=== PATIENT | female | born 1990 | race American Indian/Alaskan Native ===

== ENCOUNTER 2017-04-08 00:58 | Emergency (ER) | payer BC, OTHER ==
[2017-04-08 01:01] VITALS: BMI 35.6
[2017-04-08 01:06] VITALS: RESP 18; TEMP 98.8
[2017-04-08] MEDS ORDERED: cefTRIAXone (Rocephin) 250 mg Inj IM STA (01:54)
[2017-04-08] MEDS ORDERED: Iohexol 350 MG/100 ML VIAL ONE (02:13)
[2017-04-08 02:20] LABS: URINE BILIRUBIN NEGATIVE (NEGATIVE); URINE BLOOD NEGATIVE (NEGATIVE); URINE GLUCOSE (UA) NEGATIVE (NEGATIVE); URINE KETONE NEGATIVE (NEGATIVE); URINE LEUKOCYTE ESTERASE NEGATIVE Leu/uL (NEGATIVE); URINE PROTEIN NEGATIVE mg/dL (<30 mg/dL)
--- NOTE | 2017-04-08 02:20 | ED PDOC ---
Arrival/HPI - General Historian: Patient - History of Present Illness Time/Duration: < week Symptom Onset: Gradual Symptom Course: Unchanged Quality: Unable to Describe Severity Level: 3 Activities at Onset: Rest Context: Sitting - General Chief Complaint: Abdominal Pain Time Seen by Provider: 04/08/17 01:04 - History of Present Illness Narrative History of Present Illness (Text): 04/08/17 02:24 This is a 26 year old female with no past medical history who comes into [facility] complaining of vaginal pain for approximately one week. She reports feeling the pain when wiping after urination. She also reports right lower quadrant pain that started about two days ago. She describes the pain as cramping with no radiation. She does report drinking water improving her pain level. She denies any fevers, chills, nausea, vomiting , vaginal discharge, new vaginal lesions, vaginal odor, or any other complaints. (Richard Young) Past Medical History - Provider Review Nursing Documentation Reviewed: Yes - Infectious Disease Hx of Infectious Diseases: None - Past Medical History Past Medical History: No Previous - Psychiatric Hx Depression: No Hx Emotional Abuse: No Hx Physical Abuse: No Hx Substance Use: No - Past Surgical History Past Surgical History: No Previous - Surgical History Hx Section: Yes (x1) - Anesthesia Hx Anesthesia: Yes Hx Anesthesia Reactions: No Hx Malignant Hyperthermia: No - Suicidal Assessment Feels Threatened In Home Enviroment: No Family/Social History - Physician Review Nursing Documentation Reviewed: Yes Family/Social History: No Known Family HX Smoking Status: Never Smoked Hx Alcohol Use: Yes Frequency of alcohol use: Socially Hx Substance Use: No Hx Substance Use Treatment: No Allergies/Home Meds Allergies/Adverse Reactions: Allergies No Known Allergies Allergy (Verified 04/08/17 01:36) Home Medications: Home Meds Medication Instructions Recorded Confirmed No Known Home Med 04/08/17 04/08/17 Review of Systems - Physician Review All systems were reviewed & negative as marked: Yes - Review of Systems Constitutional: Normal. absent: Fatigue, Fevers Eyes: Normal. absent: Vision Changes, Eye Pain ENT: Normal. absent: Sore Throat, Rhinorrhea, Sinus Congestion Respiratory: Normal. absent: SOB, Cough, Wheezing Cardiovascular: Normal. absent: Chest Pain, Syncope Gastrointestinal: Abdominal Pain (RLQ pain). absent: Diarrhea, Nausea, Vomiting , Hematemesis Genitourinary Female: Other (Pain when wiping). absent: Dysuria, Frequency, Vaginal Discharge Musculoskeletal: Normal. absent: Neck Pain, Joint Swelling Skin: absent: Rash, Skin Lesions Neurological: Normal. absent: Headache, Dizziness, Seizure Endocrine: Normal. absent: Polyuria, Polydipsia Hemo/Lymphatic: Normal. absent: Easy Bleeding, Easy Bruising Psychiatric: Normal Physical Exam Vital Signs Reviewed: Yes Temperature: Afebrile Blood Pressure: Normal Pulse: Tachycardic Respiratory Rate: Normal Appearance: Positive for: Well-Appearing, Non-Toxic, Comfortable Pain Distress: Mild Mental Status: Positive for: Alert and Oriented X 3 - Systems Exam Head: Present: Atraumatic, Normocephalic Pupils: Present: PERRL Extroacular Muscles: Present: EOMI. No: Gaze Palsy Conjunctiva: Present: Normal. No: Injected Mouth: Present: Moist Mucous Membranes, Normal Tounge. No: Drooling Neck: Present: Normal Range of Motion. No: JVD, Lymphadenopathy Respiratory/Chest: Present: Clear to Auscultation, Good Air Exchange. No: Respiratory Distress, Accessory Muscle Use, Wheezes Cardiovascular: Present: Regular Rate and Rhythm, Normal S1, S2. No: Murmurs, Bradycardic Abdomen: Present: Tenderness (RLQ tenderness upon palpation), Normal Bowel Sounds. No: Peritoneal Signs, Guarding Genitourinary/Pelvic Exam: Present: Normal External Genitalia, Other (healed boils appreciated inferior to the labia majora). No: Vaginal Discharge, Vaginal Bleeding, Vaginal Lesions, Adenexal Tenderness Upper Extremity: Present: Normal Inspection. No: Cyanosis, Edema Lower Extremity: Present: Normal Inspection Neurological: Present: CN II-XII Intact, Speech Normal Skin: Present: Dry, Normal Color. No: Warm, Rashes Psychiatric: Present: Alert, Oriented x 3, Normal Insight Vital Signs Temp Pulse Resp BP Pulse Ox 04/08/17 05:17 90 18 110/59 L 99 04/08/17 03:09 82 18 106/34 L 98 04/08/17 01:05 98.8 F 96 H 18 103/66 100 Medical Decision Making ED Course and Treatment: Patient seen and examined with resident. Came up with treatment and disposition plan with resident. (Willian Hahn) 04/08/17 02:20 This is a 26 yr old female who comes into [facility] complaining of vaginal pain and right lower quadrant pain. I ordered, cbc w/ diff, cmp, gonorrhea and chlamydia panel and ct of abdomen and pelvis with iv contrast. Patient will be re-evaluated once results come back. I performed a vaginal exam on the patient and Nurse Elfego Jamison was my network security engineer. 04/08/17 04:52 CT Results: 1.Involuting or ruptured RIGHT ovarian follicle/cyst. 2.Incidental/non-acute findings are described above. 04/08/17 04:55 04/08/17 05:04 Discussed with patient to f/u with [employer] and PMD. 04/08/17 05:12 Patient tolerating PO fluids and abdomen is non distended, non tender and no guarding. Patient will be discharged. Discussed with patient to F/U with OB/ HEPATOLOGY PHYSICIAN and her PMD. 04/08/17 05:23 04/08/17 05:26 (Richard Young) - Lab Interpretations Lab Results: 04/08/17 02:55 04/08/17 02:55 Lab Results 04/08/17 02:55: Sodium 141, Potassium 3.7, Chloride 106, Carbon Dioxide 24, Anion Gap 15, BUN 12, Creatinine 0.7, Est GFR ( Amer) > 60, Est GFR (Non- Af Amer) > 60, Random Glucose 83, Calcium 9.3, Total Bilirubin 0.3, AST 30, ALT 32, Alkaline Phosphatase 87, Total Protein 7.2, Albumin 4.1, Globulin 3.1, Albumin/Globulin Ratio 1.3 04/08/17 02:55: WBC 9.1, RBC 5.10, Hgb 10.7 L, Hct 34.9 L, MCV 68.4 L, MCH 21.0 L, MCHC 30.7 L, RDW 15.3 H, Plt Count 244, MPV 10.5, Gran % 50.1, Lymph % (Auto ) 41.0 H, [place] % (Auto) 6.7 H, Eos % (Auto) 2.0, Baso % (Auto) 0.2, Gran # 4.54 , Lymph # 3.7 H, [place] # 0.6, Eos # 0.2, Baso # 0.02 04/08/17 02:00: Urine Color Yellow, Urine Appearance Clear, Urine pH 6.0, Ur Specific [place] 1.025, Urine Protein Negative, Urine Glucose (UA) Negative, Urine Ketones Negative, Urine Blood Negative, Urine Nitrate Negative, Urine Bilirubin Negative, Urine Urobilinogen 1.0 H, Ur Leukocyte Esterase Negative - RAD Interpretation Radiology Orders: 04/08/17 01:51 ABDOMEN & PELVIS [ABD & PELVIS IV CONTRAST ONLY] [CT] Stat - Medication Orders Current Medication Orders: Discontinued Medications Azithromycin (Zithromax) 1,000 mg PO STAT STA PRN Reason: Protocol Stop: 04/08/17 02:01 Last Admin: 04/08/17 02:10 Dose: 1,000 mg Ceftriaxone Sodium (Rocephin) 250 mg IM STAT STA PRN Reason: Protocol Stop: 04/08/17 01:55 Last Admin: 04/08/17 02:00 Dose: 250 mg Iohexol (Omnipaque 350 100 Ml) Confirm Administered Dose 350 mg .ROUTE .TruQC-MED ONE Stop: 04/08/17 02:14 Disposition/Present on Arrival - Present on Arrival Any Indicators Present on Arrival: No History of DVT/PE: No History of Uncontrolled Diabetes: No Urinary Catheter: No History of Decub. 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 Patient is to return to [facility] if present symptoms worsen or any new symptoms arise. Referrals: Shireen Wray MD [Primary Care Provider] - Follow up with primary Forms: [employer]anga[employer] (Bur[place]ian)
[2017-04-08 02:21] LABS: URINE APPEARANCE CLEAR (CLEAR); URINE COLOR YELLOW (YELLOW)
[2017-04-08 03:10] LABS: BASO # 0.02 K/mm3 (0.0-2.0); BASO % 0.2 % (0.0-3.0); EOS # 0.2 (0.0-0.7); GRAN # 4.54 (1.4-6.5); GRAN % 50.1 % (50.0-68.0); HEMATOCRIT 34.9 % (36.0-48.0); LYMPH # 3.7 (1.2-3.4); MEAN CELL VOLUME 68.4 fl (80.0-105.0); MEAN CORPUSCULAR HGB CONC 30.7 g/dl (31.0-37.0); MEAN PLATELET VOLUME 10.5 fl (7.0-11.0); MONO # 0.6 (0.1-0.6); MONO % 6.7 % (1.0-6.0); RED CELL DISTRIBUTION WIDTH 15.3 % (11.5-14.5); WHITE BLOOD COUNT 9.1 10^3/ul (4.5-11.0)
[2017-04-08 03:23] LABS: ALB/GLOB RATIO 1.3 (1.1-1.8); ALKALINE PHOSPHATASE 87 U/L (38-133); ALT/SGPT 32 U/L (7-56); AST/SGOT 30 U/L (15-39); BILIRUBIN,TOTAL 0.3 mg/dL (0.2-1.3); BLOOD UREA NITROGEN 12 mg/dL (7-21); CALCIUM 9.3 mg/dL (8.4-10.5); CARBON DIOXIDE 24 mmol/L (21-33); CHLORIDE 106 mmol/L (98-107); GFR AFRICAN-AMERICAN > 60; GLUCOSE,RANDOM 83 mg/dL (70-110); POTASSIUM 3.7 mmol/L (3.6-5.0); SODIUM 141 mmol/L (132-148); TOTAL PROTEIN 7.2 g/dL (5.8-8.3)
--- NOTE | 2017-04-08 04:29 | CT ---
EXAM: CT Abdomen and Pelvis With Intravenous Contrast CLINICAL HISTORY: 26 years old, female; Pain; Abdominal pain; Patient HX: Rlq pain TECHNIQUE: Axial computed tomography images of the abdomen and pelvis with intravenous contrast. All CT scans at this facility use one or more dose reduction techniques, viz.: automated exposure control; ma/kV adjustment per patient size (including targeted exams where dose is matched to indication; i.e. head); or iterative reconstruction technique. Coronal and sagittal reformatted images were created and reviewed. CONTRAST: 96 mL of OMNIPAQUE 350 administered intravenously. COMPARISON: No relevant prior studies available. FINDINGS: Lower thorax: No acute findings. ABDOMEN: Liver: Unremarkable. No mass. Gallbladder and bile ducts: Calcified gallstone. No ductal dilation. Pancreas: No ductal dilation. No mass. Spleen: No splenomegaly. Adrenals: No mass. Kidneys and ureters: No mass. No hydronephrosis. Stomach and bowel: No definite mural thickening. No obstruction. Appendix: Normal caliber. No inflammation. PELVIS: Bladder: Unremarkable. Reproductive: 1.8 x 1.5 x 1.6 cm peripherally enhancing hypodensity with crenulated margins within RIGHT ovary. ABDOMEN and PELVIS: Intraperitoneal space: Small free fluid within pelvis. No free air. Bones/joints: No acute fracture. Soft tissues: Tiny umbilical hernia containing fat. Vasculature: Unremarkable. No aneurysm. Lymph nodes: No pathologically enlarged lymph nodes. IMPRESSION: 1. Involuting or ruptured RIGHT ovarian follicle/cyst. 2. Incidental/non-acute findings are described above.
[2017-04-08 05:23] VITALS: BP 110/59; PULSE 90; O2SAT 99
== END 2017-04-08 05:23 | disposition home or self-care (01) ==
LOC: ED 00:58
DX: N83.201 Unspecified ovarian cyst, right side (principal)
CPT/HCPCS: 74177; 80053; 81003; 85025; 87086; 87491; 87591; 96372; 99283; J0696; Q9967

== ENCOUNTER 2017-05-02 10:48 | Emergency (ER) | payer BC, OTHER ==
[2017-05-02 11:00] VITALS: BMI 36.6
[2017-05-02 11:04] VITALS: BP 105/71; PULSE 74; RESP 16; TEMP 98.4; O2SAT 97
== END 2017-05-02 16:32 | disposition left against medical advice (07) ==
LOC: ED 10:48
DX: Z02.89 Encounter for other administrative examinations (principal); R10.9 Unspecified abdominal pain

== ENCOUNTER 2017-10-23 13:32 | Emergency (ER) | payer BC, OTHER ==
[2017-10-23 13:32] VITALS: BMI 36.6
[2017-10-23 13:39] VITALS: TEMP 98.1
[2017-10-23] MEDS ORDERED: Sodium Chloride 0.9% 1,000 ML IV STA (14:06)
--- NOTE | 2017-10-23 14:07 | ED PDOC ---
Arrival/HPI - General Chief Complaint: Abdominal Pain Time Seen by Provider: 10/23/17 14:02 Historian: Patient - History of Present Illness Narrative History of Present Illness (Text): 10/23/17 14:07 27 year old female, whose past medical history includes ruptured ovarian cyst, presents to the emergency department complaining of worsening epigastric abdominal pain radiating up to the chest that began this morning. She states she ate this morning before that pain began. Patient reports she has possibly blood in her urine. Patient denies any fever, chills, chest pain, shortness of breath, nausea, vomiting, diarrhea, dysuria, back pain, neck pain, headache, dizziness, or any other complaints. PMD: Dr. Wray Time/Duration: 4-6 hours Symptom Onset: Sudden Symptom Course: Worsening Activities at Onset: Light Context: Home Past Medical History - Provider Review Nursing Documentation Reviewed: Yes - Infectious Disease Hx of Infectious Diseases: None - Past Medical History Past Medical History: No Previous - Cardiac Hx Heart Murmur: No - Pulmonary Hx Pneumonia: No - Neurological Hx Meningitis: No - HEENT Hx Epistaxis: No - Renal Hx Neurogenic Bladder: No - Endocrine/Metabolic Hx Systemic Lupus Erythematosus: No - Hematological/Oncological Hx Blood Disorders: Yes Other/Comment: low iron - Integumentary Hx Dermatological Disorder: No - Musculoskeletal/Rheumatological Hx Musculoskeletal Disorders: No - Gastrointestinal Hx Gastrointestinal Disorders: No - Genitourinary/Gynecological Hx Bladder Cancer: No - Psychiatric Hx Physical Abuse: No Hx Substance Use: No - Past Surgical History Past Surgical History: No Previous - Surgical History Hx Section: Yes (x1) - Anesthesia Hx Anesthesia: Yes - Suicidal Assessment Feels Threatened In Home Enviroment: No Family/Social History - Physician Review Nursing Documentation Reviewed: Yes Family/Social History: No Known Family HX Smoking Status: Never Smoked Hx Alcohol Use: Yes Hx Substance Use: No Hx Substance Use Treatment: No Allergies/Home Meds Allergies/Adverse Reactions: Allergies No Known Allergies Allergy (Verified 10/23/17 13:34) Review of Systems - Physician Review All systems were reviewed & negative as marked: Yes - Review of Systems Constitutional: absent: Fevers, Other (Chills) Respiratory: absent: SOB Cardiovascular: absent: Chest Pain Gastrointestinal: Abdominal Pain. absent: Diarrhea, Nausea, Vomiting Genitourinary Female: Hematuria (Unsure). absent: Dysuria Musculoskeletal: absent: Back Pain, Neck Pain Neurological: absent: Headache, Dizziness Physical Exam Vital Signs Reviewed: Yes Vital Signs Temp Pulse Resp BP Pulse Ox 10/23/17 16:17 79 18 128/79 97 10/23/17 13:34 98.1 F 86 22 130/83 100 Temperature: Afebrile Blood Pressure: Normal Pulse: Regular Respiratory Rate: Normal Appearance: Positive for: Well-Appearing, Non-Toxic, Comfortable Pain Distress: None Mental Status: Positive for: Alert and Oriented X 3 - Systems Exam Head: Present: Atraumatic, Normocephalic Pupils: Present: PERRL Extroacular Muscles: Present: EOMI Conjunctiva: Present: Normal Mouth: Present: Moist Mucous Membranes Neck: Present: Normal Range of Motion Respiratory/Chest: Present: Clear to Auscultation, Good Air Exchange. No: Respiratory Distress, Accessory Muscle Use Cardiovascular: Present: Regular Rate and Rhythm, Normal S1, S2. No: Murmurs Abdomen: Present: Tenderness (Epigastric tenderness ), Normal Bowel Sounds. No : Distention, Peritoneal Signs Back: Present: Normal Inspection Upper Extremity: Present: Normal Inspection. No: Cyanosis, Edema Lower Extremity: Present: Normal Inspection. No: Edema Neurological: Present: GCS=15, CN II-XII Intact, Speech Normal Skin: Present: Warm, Dry, Normal Color. No: Rashes Psychiatric: Present: Alert, Oriented x 3, Normal Insight, Normal Concentration Medical Decision Making ED Course and Treatment: 10/23/17 14:07 Impression: 27 year old female presents complaining of epigastric abdominal pain. Pt past medical history includes ruptured ovarian cyst. Plan: -- Labs -- IV Fluids -- Urine Culture -- POC Urine Test -- Urinalysis -- Abdomen Complete US -- Reassess and disposition Prior Visits: Notes and results from previous visits were reviewed. Patient was last seen in the emergency department on 04/08/17 presents complaining of vaginal pain and RLQ pain. Patient was discharged. Progress Notes: - Lab Interpretations Lab Results: 10/23/17 14:30 10/23/17 14:30 Lab Results 10/23/17 14:30: Sodium 143, Potassium 3.6, Chloride 105, Carbon Dioxide 30, Anion Gap 12, BUN 13, Creatinine 0.7, Est GFR ( Amer) > 60, Est GFR (Non- Af Amer) > 60, Random Glucose 85, Calcium 9.8, Total Bilirubin 0.4, AST 32, ALT 25, Alkaline Phosphatase 102, Total Protein 7.3, Albumin 4.0, Globulin 3.3, Albumin/Globulin Ratio 1.2, Amylase 78, Lipase 74 10/23/17 14:30: WBC 8.4, RBC 5.24, Hgb 11.1 L, Hct 36.6, MCV 69.8 L, MCH 21.2 L , MCHC 30.3 L, RDW 15.4 H, Plt Count 267, MPV 10.9, Gran % 60.6, Lymph % (Auto) 31.2, [place] % (Auto) 6.2 H, Eos % (Auto) 1.8, Baso % (Auto) 0.2, Gran # 5.07, Lymph # (Auto) 2.6, [place] # (Auto) 0.5, Eos # (Auto) 0.2, Baso # (Auto) 0.02 I have reviewed the lab results: Yes - RAD Interpretation Radiology Orders: 10/23/17 14:06 ABDOMEN COMPLETE [US] Stat - Medication Orders Current Medication Orders: Discontinued Medications Sodium Chloride (Sodium Chloride 0.9%) 1,000 mls @ 1,000 mls/hr IV .Q1H STA Stop: 10/23/17 15:05 Last Admin: 10/23/17 14:30 Dose: 1,000 mls/hr eMAR Start Stop Document 10/23/17 14:30 EQ (Rec: 10/23/17 15:59 EQ [id number]) Intravenous Solution Start Date 10/23/17 Start Time 14:30 Disposition/Present on Arrival - Present on Arrival Any Indicators Present on Arrival: No History of DVT/PE: No History of Uncontrolled Diabetes: No Urinary Catheter: No History of Decub. Ulcer: No History Surgical Site Infection Following: None - Disposition Have Diagnosis and Disposition been Completed?: Yes Diagnosis: Gallstones without obstruction of gallbladder Disposition: HOME/ ROUTINE Disposition Time: 15:30 Condition: GOOD Discharge Instructions (ExitCare): Gallstones (DC) Additional Instructions: Thank you for letting us take care of you today. The emergency medical care you received today was directed at your acute symptoms. If you were prescribed any medication, please fill it and take as directed. It may take several days for your symptoms to resolve. Return to the Emergency Department if your symptoms worsen, do not improve, or if you have any other problems. Please contact your doctor or call one of the physicians/clinics you have been referred to that are listed on the Patient Visit Information form that is included in your discharge packet. Bring any paperwork you were given at discharge with you along with any medications you are taking to your follow up visit. Our treatment cannot replace ongoing medical care by a primary care provider (PCP) outside of the emergency department. Thank you for allowing the [facility] team to be part of your care today. Follow up with your doctor this week for re-evaluation and further management. Prescriptions: Ibuprofen [Motrin] 600 mg PO Q6 PRN #20 tab PRN Reason: Pain, Moderate (4-7) Ranitidine HCl [Zantac] 150 mg PO BID #20 tablet Referrals: Anabel Andino, [Non-Staff] - Follow up with primary Forms: WORK NOTE
[2017-10-23 14:47] LABS: BASO # 0.02 K/mm3 (0.0-2.0); BASO % 0.2 % (0.0-3.0); EOS # 0.2 (0.0-0.7); EOS % 1.8 % (1.5-5.0); GRAN # 5.07 (1.4-6.5); GRAN % 60.6 % (50.0-68.0); HEMOGLOBIN 11.1 g/dL (12.0-16.0); LYMPH # 2.6 (1.2-3.4); LYMPH % 31.2 % (22.0-35.0); MEAN CELL VOLUME 69.8 fl (80.0-105.0); MEAN CORPUSCULAR HEMOGLOBIN 21.2 pg (25.0-35.0); MEAN CORPUSCULAR HGB CONC 30.3 g/dl (31.0-37.0); MEAN PLATELET VOLUME 10.9 fl (7.0-11.0); MONO # 0.5 (0.1-0.6); MONO % 6.2 % (1.0-6.0); RBC 5.24 10^6/uL (3.5-6.1); RED CELL DISTRIBUTION WIDTH 15.4 % (11.5-14.5); WHITE BLOOD COUNT 8.4 10^3/ul (4.5-11.0)
[2017-10-23 14:57] LABS: ALB/GLOB RATIO 1.2 (1.1-1.8); ALT/SGPT 25 U/L (7-56); AMYLASE 78 U/L (35-125); AST/SGOT 32 U/L (14-36); BLOOD UREA NITROGEN 13 mg/dL (7-21); CALCIUM 9.8 mg/dL (8.4-10.5); GFR AFRICAN-AMERICAN > 60; GFR NON-AFRICAN AMERICAN > 60; LIPASE 74 U/L (23-300)
--- NOTE | 2017-10-23 15:24 | US ---
HISTORY: epigastric and RUQ tenderness COMPARISON: None. TECHNIQUE: Grayscale imaging was performed. FINDINGS: LIVER: Measures 16.8 cm. Normal echogenicity of the liver parenchyma. No mass. No intrahepatic bile duct dilatation. GALLBLADDER: There are multiple gallstones. No wall thickening, pericholecystic fluid or positive sonographic Tenorio's sign COMMON BILE DUCT: Measures 2.7 mm. No stones. No dilatation. PANCREAS: Unremarkable as visualized. No mass. No ductal dilatation. RIGHT KIDNEY: Measures 10.8cm. Normal echogenicity. No calculus, mass, or hydronephrosis. LEFT KIDNEY: Measures 10.5cm. Normal echogenicity. No calculus, mass, or hydronephrosis. SPLEEN: Normal in size and contour. No mass. AORTA: No aneurysmal dilatation. IVC: Unremarkable. OTHER FINDINGS: None. IMPRESSION: Cholelithiasis. No sonographic evidence for acute cholecystitis.
[2017-10-23 16:17] VITALS: BP 128/79; PULSE 79; RESP 18; O2SAT 97
== END 2017-10-23 16:20 | disposition home or self-care (01) ==
LOC: ED 13:32
DX: K80.20 Calculus of gallbladder without cholecystitis without obstruction (principal)
CPT/HCPCS: 76700; 80053; 82150; 83690; 85025; 99283; J7040

== ENCOUNTER 2017-12-24 15:23 | Emergency (ER) | payer SELFPAY ==
[2017-12-24 16:01] VITALS: BP 102/58; PULSE 99; RESP 18; TEMP 98.1; O2SAT 97; BMI 33.5
--- NOTE | 2017-12-24 16:13 | ED PDOC ---
Arrival/HPI - General Chief Complaint: Abnormal Skin Integrity Time Seen by Provider: 12/24/17 16:08 Historian: Patient - History of Present Illness Narrative History of Present Illness (Text): 12/24/17 16:10 27 y/o female, pmh including cholelithiasis/ovarian cyst, nkda, c/o Past Medical History - Infectious Disease Hx of Infectious Diseases: None - Past Medical History Past Medical History: No Previous - Cardiac Hx Heart Murmur: No - Pulmonary Hx Pneumonia: No - Neurological Hx Meningitis: No - HEENT Hx Epistaxis: No - Renal Hx Neurogenic Bladder: No - Endocrine/Metabolic Hx Systemic Lupus Erythematosus: No - Hematological/Oncological Hx Blood Disorders: Yes Other/Comment: low iron - Integumentary Hx Dermatological Disorder: No - Musculoskeletal/Rheumatological Hx Musculoskeletal Disorders: No - Gastrointestinal Hx Gastrointestinal Disorders: No - Genitourinary/Gynecological Hx Bladder Cancer: No - Psychiatric Hx Physical Abuse: No Hx Substance Use: No - Past Surgical History Past Surgical History: No Previous - Surgical History Hx Section: Yes (x1) - Anesthesia Hx Anesthesia: Yes - Suicidal Assessment Feels Threatened In Home Enviroment: No Family/Social History Smoking Status: Never Smoked Hx Alcohol Use: Yes Frequency of alcohol use: Socially Hx Substance Use: No Hx Substance Use Treatment: No Allergies/Home Meds Allergies/Adverse Reactions: Allergies No Known Allergies Allergy (Verified 10/23/17 13:34) Physical Exam Vital Signs Temp Pulse Resp BP Pulse Ox 12/24/17 16:00 98.1 F 99 H 18 102/58 L 97 Disposition/Present on Arrival - Present on Arrival History of DVT/PE: No History of Uncontrolled Diabetes: No Urinary Catheter: No History of Decub. Ulcer: No History Surgical Site Infection Following: None - Disposition
--- NOTE | 2017-12-24 16:18 | ED PDOC ---
Arrival/HPI - General Chief Complaint: Abnormal Skin Integrity Time Seen by Provider: 12/24/17 16:08 Historian: Patient - History of Present Illness Narrative History of Present Illness (Text): 12/24/17 16:15 27 year old female, whose past medical history includes ovarian cysts and gallstones, who presents to the emergency department complaining of an abscess on the right armpit. Patient notes it started as a small pimple but has grown and causes pain. Patient denies any fever, chills, chest pain, shortness of breath, numbness or tingling, nausea, vomiting, diarrhea, back pain, neck pain, headache, dizziness, or any other complaints. Symptom Onset: Gradual Symptom Course: Unchanged Activities at Onset: Light Context: Home Past Medical History - Provider Review Nursing Documentation Reviewed: Yes - Infectious Disease Hx of Infectious Diseases: None - Past Medical History Past Medical History: No Previous - Cardiac Hx Heart Murmur: No - Pulmonary Hx Pneumonia: No - Neurological Hx Meningitis: No - HEENT Hx Epistaxis: No - Renal Hx Neurogenic Bladder: No - Endocrine/Metabolic Hx Systemic Lupus Erythematosus: No - Hematological/Oncological Hx Blood Disorders: Yes Other/Comment: low iron - Integumentary Hx Dermatological Disorder: No - Musculoskeletal/Rheumatological Hx Musculoskeletal Disorders: No - Gastrointestinal Hx Gastrointestinal Disorders: No - Genitourinary/Gynecological Hx Bladder Cancer: No - Psychiatric Hx Physical Abuse: No Hx Substance Use: No - Past Surgical History Past Surgical History: No Previous - Surgical History Hx Section: Yes (x1) - Anesthesia Hx Anesthesia: Yes - Suicidal Assessment Feels Threatened In Home Enviroment: No Family/Social History - Physician Review Nursing Documentation Reviewed: Yes Family/Social History: Unknown Family HX Smoking Status: Never Smoked Hx Alcohol Use: Yes Frequency of alcohol use: Socially Hx Substance Use: No Hx Substance Use Treatment: No Allergies/Home Meds Allergies/Adverse Reactions: Allergies No Known Allergies Allergy (Verified 12/24/17 16:10) Review of Systems - Physician Review All systems were reviewed & negative as marked: Yes - Review of Systems Constitutional: Normal Eyes: Normal ENT: Normal Respiratory: Normal. absent: SOB, Cough Cardiovascular: Normal. absent: Chest Pain Gastrointestinal: Normal. absent: Abdominal Pain, Diarrhea, Nausea, Vomiting Genitourinary Female: Normal. absent: Dysuria, Frequency, Hematuria Musculoskeletal: Normal. absent: Back Pain, Neck Pain Skin: Skin Lesions (right armpit), Abscess (right armpit) Neurological: Normal. absent: Headache, Dizziness Endocrine: Normal Hemo/Lymphatic: Normal Psychiatric: Normal Physical Exam Vital Signs Reviewed: Yes Vital Signs Temp Pulse Resp BP Pulse Ox 12/24/17 16:00 98.1 F 99 H 18 102/58 L 97 Temperature: Afebrile Pulse: Regular Respiratory Rate: Normal Appearance: Positive for: Well-Appearing, Non-Toxic, Comfortable Pain Distress: Mild Mental Status: Positive for: Alert and Oriented X 3 - Systems Exam Head: Present: Atraumatic, Normocephalic Pupils: Present: PERRL Extroacular Muscles: Present: EOMI Conjunctiva: Present: Normal Mouth: Present: Moist Mucous Membranes Neck: Present: Normal Range of Motion Respiratory/Chest: Present: Clear to Auscultation, Good Air Exchange. No: Respiratory Distress, Accessory Muscle Use Cardiovascular: Present: Regular Rate and Rhythm, Normal S1, S2. No: Murmurs Abdomen: No: Tenderness, Distention, Peritoneal Signs Back: Present: Normal Inspection Upper Extremity: Present: Normal Inspection. No: Cyanosis, Edema Lower Extremity: Present: Normal Inspection. No: Edema Neurological: Present: GCS=15, Speech Normal, Motor Func Grossly Intact, Gait Normal, Memory Normal Skin: Present: Warm, Dry, Rashes (rt. armpit visible approx. [id number] fluctuant abscess with no cellulitis or streaking, no ulcers, FROM without limitation, sensation intact, motor 5/5, ), Normal Color Psychiatric: Present: Alert, Oriented x 3, Normal Insight, Normal Concentration Medical Decision Making ED Course and Treatment: 12/24/17 16:18 Impression: 27 year old female who presents to the emergency department complaining of an abscess on the right armpit. Plan: -- Incision and Drainage/keflex/bactrim ds -- Reassess and disposition 12/24/17 16:48 -Urine hcg is negative. -Sensation intact, motor 5/5, wound irrigated with saline, bedside sonogram perform by me confirmed 1.5cmx1.5cm fluctuant abscess noted, 1% lidocaine injected 0.5cc noted, sterile procedure, #11 blade made 0.5cm incision with approx. 2cc purulant drainage, swelling resolved, 1/2" iodofoam packing, gauze dressing, sensation intact, motor 5/5, total procedure time 30 minutes -Discharge home with keflex, bactrimds, motrin, keep the dressing dry and clean , wound and packing needs to be checked and changed in 2 days in the ER, return to the ER for any new or worsening signs or symptoms. 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 - Scribe Statement The provider has reviewed the documentation as recorded by the Scribe Bhumi Cruz All medical record entries made by the Scribe were at my direction and personally dictated by me. I have reviewed the chart and agree that the record accurately reflects my personal performance of the history, physical exam, medical decision making, and the department course for this patient. I have also personally directed, reviewed, and agree with the discharge instructions and disposition. Disposition/Present on Arrival - Present on Arrival Any Indicators Present on Arrival: No History of DVT/PE: No History of Uncontrolled Diabetes: No Urinary Catheter: No History of Decub. Ulcer: No History Surgical Site Infection Following: None - Disposition Have Diagnosis and Disposition been Completed?: Yes Diagnosis: Abscess Disposition: HOME/ ROUTINE Disposition Time: 16:50 Patient Plan: Discharge Patient Problems: Current Active Problems Problem Status Onset Abscess Acute Condition: GOOD Additional Instructions: -Discharge home with keflex, bactrimds, motrin, keep the dressing dry and clean , wound and packing needs to be checked and changed in 2 days in the ER, return to the ER for any new or worsening signs or symptoms. Prescriptions: Cephalexin [cephalexin] 500 mg PO TID #30 cap Ibuprofen [Motrin] 600 mg PO QID PRN #30 tab PRN Reason: Other Sulfamethoxazole/Trimethoprim [Bactrim Ds Tablet] 1 each PO BID #20 tablet Referrals: Rich Dee MD [Staff Provider] - [place] up with [facility] [place] [facility] [place] - Follow up with primary Forms: WORK NOTE
[2017-12-24] MEDS ORDERED: Tmp-Smz 800 mg-160 mg DS Tab PO STA (16:34)
== END 2017-12-24 16:58 | disposition home or self-care (01) ==
LOC: ED 15:23
DX: L02.411 Cutaneous abscess of right axilla (principal)